=== PATIENT | male | born 1985 | race Caucasian/White ===

== ENCOUNTER 2017-02-11 17:26 | Emergency (ER) | payer OTHER ==
[2017-02-11 17:58] VITALS: PULSE 83; RESP 19; O2SAT 98
--- NOTE | 2017-02-11 18:43 | ED PDOC ---
HPI: Nose Bleed Time Seen by Provider: 02/11/17 17:42 Chief Complaint (Nursing): ENT Problem Chief Complaint (Provider): Nose bleed History Per: Patient History/Exam Limitations: no limitations Onset/Duration Of Symptoms: Days (1 week) Current Symptoms Are (Timing): Gone Now Additional Complaint(s): Pt. with nose bleed to the left nare off and on for 1 week. Stops on its own. States no injury to nose. Puts on a fan to the face during the night. No pain. No fever, dizziness, headaches, weakness, chest pain, dyspnea. No vision changes. Past Medical History Reviewed: Nursing Documentation, Vital Signs Vital Signs: Last Vital Signs Temp Pulse 83 02/11/17 17:54 Resp 19 02/11/17 17:54 BP 146/105 H 02/11/17 17:54 Pulse Ox 98 02/11/17 17:54 - Medical History PMH: Migraine Other PMH: htn - Surgical History Surgical History: No Surg Hx - Family History Family History: States: Unknown Family Hx - Living Arrangements Living Arrangements: With Family - Social History Alcohol: None Drugs: Denies - Home Medications Home Medications: Ambulatory Orders Medication Instructions Recorded Ondansetron [Zofran] 4 mg PO Q8H #9 tab 02/01/14 SUMAtriptan [Imitrex] 50 mg PO BID PRN #10 tab 02/01/14 Azithromycin [Zithromax Z-Darrian] 250 mg PO DAILY #1 packet 10/19/14 Amoxicillin 500 mg PO BID #14 cap 11/03/14 Ibuprofen [Motrin] 600 mg PO Q6H PRN #10 tab 11/03/14 Naproxen [Naprosyn] 500 mg PO BID PRN #15 tablet 01/03/16 - Allergies Allergies/Adverse Reactions: Allergies Allergy/AdvReac Type Severity Reaction Status Date / Time No Known Allergies Allergy Verified 11/02/14 19:34 Review of Systems ROS Statement: Except As Marked, All Systems Reviewed And Found Negative Physical Exam - Reviewed Nursing Documentation Reviewed: Yes Vital Signs Reviewed: Yes - Physical Exam Appears: Positive for: Well, Non-toxic, No Acute Distress Head Exam: Positive for: ATRAUMATIC, NORMAL INSPECTION, NORMOCEPHALIC Skin: Positive for: Normal Color, Warm, DRY Eye Exam: Positive for: EOMI, Normal appearance, PERRL ENT: Positive for: Other (L nostril with dried blood; no active bleeding noted) . Negative for: Nasal Congestion, Pharyngeal Erythema, Tonsillar Exudate Neck: Positive for: Normal, Painless ROM Cardiovascular/Chest: Positive for: Regular Rate, Rhythm Respiratory: Positive for: CNT, Normal Breath Sounds Gastrointestinal/Abdominal: Positive for: Normal Exam, Bowel Sounds, Soft Back: Positive for: Normal Inspection Extremity: Positive for: Normal ROM Neurologic/Psych: Positive for: Alert, Oriented - ECG O2 Sat by Pulse Oximetry: 98 - Progress ED Course And Treament: 1845: Pt. with high bp he states he notices, but not on meds. Advised to fu with pcp. Use a humidifier and keep nares moist. Pt. is aaox3. Pain free. No bleeding. Disposition - Clinical Impression Clinical Impression: HTN (hypertension), Epistaxis - Patient ED Disposition Is Patient to be Admitted: No Counseled Patient/Family Regarding: Diagnosis, Need For Followup - Disposition Referrals: [facility] Disposition: Routine/Home Disposition Time: 18:46 Condition: STABLE Additional Instructions: Return if not better in 3 days. Keep nose moist and no fan on your face. Instructions: Hypertension (ED)
[2017-02-11 18:57] VITALS: BP 132/74
== END 2017-02-11 18:58 | disposition home or self-care (01) ==
LOC: H.ER 17:26
DX: R04.0 Epistaxis (principal); I10 Essential (primary) hypertension